=== PATIENT | female | born 1975 | race Hispanic/Latino ===

== ENCOUNTER 2019-04-30 03:03 | Emergency (ER) | payer OTHER ==
[~2019-04-30] VITALS: Ht 154.9 cm; Wt 81.6 kg
[~2019-04-30 03:03] MED LIST: LOSA50TA14 PO
[2019-04-30 03:12] VITALS: BP 183/89
--- NOTE | 2019-04-30 03:12 | NUR ---
ARRIVAL PATIENT PRESENTS WITH COMPLAINTS OF CHEST PAIN, HIGH BLOOD PRESSURE AND HEADACHE "ALL DAY". SHE REPORTS CHEST PAIN TO LEFT SIDE OF CHEST THAT RADIATES TO BACK AND NECK; SHARP. STATES THAT SHE HAS NEVER HAD THIS CHEST PAIN BEFORE. NO CARDIAC HX. HX HTN BUT HAS NOT TAKEN HER BP MEDICATION FOR THE PAST THREE WEEKS. PLACED ON MONITOR. BP 183/89. NO SIGNS OF DISTRESS NOTED. DO ABEBA NOTIFIED.
[2019-04-30] MEDS ORDERED: LOPRESSER IVP STA (03:28)
[2019-04-30] MEDS ORDERED: ASPIRIN PO PRN (03:30)
--- NOTE | 2019-04-30 03:30 | PCM.EKG ---
[facility] Test Date: 2019-04-30 Test Time: 03:19:40 Pat Name: ELI WEEMS Department: Patient ID: [facility]-[id number] Room: Gender: F Director Systems: FRANKIE : 1975 Requested By: AYO US Order Number: [id number] Reading MD: Malathi Us Measurements Intervals Petal Rate: 61 P: 25 IA: 125 QRS: 30 QRSD: 100 T: 52 QT: 428 QTc: 431 Interpretive Statements Sinus rhythm Abnormal R-wave progression, late transition No previous ECG available for comparison Electronically Signed On 05-02-2019 7:00:45 JUNIOR ACCOUNTING CLERK by Malathi Us Please click the below link to view image of tracing.
--- NOTE | 2019-04-30 03:36 | ER.PDOC ---
General Chief Complaint: Requesting Medical Care Stated Complaint: BACK AND CHEST PAIN Time seen by MD: 03:24 Source: patient Exam Limitations: no limitations History of Present Illness Initial Comments Pt c/o headache and chest/back pain (sharp/stabbing, worse with inspiration) onset about 8 hour ago. She is supposed to take BP medication, but ran out 3 weeks ago. Timing/Duration: 4-6 hours Severity/Quality: moderate Radiation: neck Activities at Onset: none Prior CP/Workup: No Prior Chest Pain Modifying Factors: breathing (deep inspiration makes pain worse) Nitro Today/Relief: No Nitro Taken Today Aspirin Today: No Aspirin Today Associated Symptoms: headache Allergies: Coded Allergies: No Known Allergies (Unverified , 02/26/15) Home Meds Reported Medications Losartan Potassium (LOSARTAN POTASSIUM) 50 Mg Tablet, 1 TAB PO DAILY, #30 TAB 5 Refills 11/15/15 Past Medical History Medical History: hypertension (medically noncompliant, ran out of meds > 3 weeks ago) Surgical History: cholecystectomy Family History Significant Family History: no pertinent family hx Social History Smoking: non-smoker Constitutional: no symptoms reported EENTM: no symptoms reported Respiratory: no symptoms reported Cardiovascular: chest pain (sharp, stabbing, worse with deep inspiration) Musculoskeletal: no symptoms reported Skin: no symptoms reported Physical Exam General Appearance: No Apparent Distress, WD/WN, Obese HEENT: PERRL/EOMI Respiratory: lungs clear, normal breath sounds, no respiratory distress, no accessory muscle use Cardiovascular: Regular Rate, Rhythm Gastrointestinal: Normal Bowel Sounds Extremities: Normal Range of Motion, Non-Tender, No Pedal Edema, No Calf Tenderness Neurologic/Psychiatric: Alert, Normal Mood/Affect, Oriented x 3 Skin: Normal Color, Warm/Dry Lymphatic: No Adenopathy Progress Progress cardiac markers are normal; BP minimally responsive to metoprolol; labetalol ordered with resultant drop in pressure 143/92 EKG/XRAY/CT/US EKG: NSR, no ST T wave changes Departure Time of Disposition: 04:44 Disposition: 01 HOME, SELF-CARE Impression: Primary Impression: Chest pain Additional Impressions: Medical non-compliance Uncontrolled hypertension Headache Condition: Improved Patient Instructions: Chest Pain (Nonspecific), Hypertension Referrals: YARIEL JUAN NP (PCP) PRIMARY CARE PROVIDER Additional Instructions: Take the prescribed blood pressure medication as directed. Follow up with your doctor next week for re-evaluation. Home to rest in a dark quiet place. Return to ER if headache worsens, visual change, difficulty breathing, worsening chest discomfort, or for any other concerns. Duration or Time Spent with Pa: 15 min Problem Qualifiers Primary Impression: Chest pain Chest pain type: chest pain on breathing Qualified Codes: R07.1 - Chest pain on breathing Additional Impressions: Headache Headache type: other vascular headache Qualified Codes: G44.1 - Vascular headache, not elsewhere classified AYO US DO Apr 30, 2019 03:36
[2019-04-30 03:41] LABS: BASOPHIL % 0.6 % (0.0-0.2); EOSINOPHIL # 0.3 10^3/uL (0.0-0.2); EOSINOPHIL % 3.7 % (0.0-5.0); LYMPHOCYTES % 40.8 % (24.0-44.0); MEAN CORP HGB 30.3 pg (26-34); MONOCYTES # 0.5 10^3/uL (0.3-0.8); MONOCYTES % 6.5 % (5.0-12.0); NEUTROPHIL # 3.4 10^3/uL (1.8-7.7); NEUTROPHILS % 48.1 % (41.0-85.0); PLATELET COUNT 268 10^3/uL (150-400); RED CELL DISTRIBUTION WIDTH 11.9 % (11.5-14.5)
[2019-04-30] MEDS ORDERED: LOPRESSER ONE (03:42)
[2019-04-30] MEDS ORDERED: ASPIRIN ONE (03:42)
[2019-04-30 04:00] VITALS: BP 161/101
[2019-04-30 04:06] LABS: ALANINE AMINOTRANSFERASE(ML) 55 U/L (12-78); ALKALINE PHOSPHATASE 74 U/L (50-136); ASPARTATE AMINO TRANSFERASE 28 U/L (0-35); CALCIUM 8.2 mg/dL (8.4-10.5); GLUCOSE 103 mg/dL (70-110)
[2019-04-30] MEDS ORDERED: TORADOL ONE (04:29)
[2019-04-30 04:30] VITALS: BP 143/92
[2019-04-30] MEDS ORDERED: TORADOL IM ONE (04:30)
[2019-04-30] MEDS ORDERED: TRANDATE IV ONE (04:30)
[2019-04-30] MEDS ORDERED: TORADOL IV ONE (04:30)
[2019-04-30 05:00] VITALS: BP 139/93
--- NOTE | 2019-04-30 05:00 | NUR ---
IV IV DISCONTINUED WITH TIP INTACT. PRESSURE DRESSING APPLIED.
== END 2019-04-30 05:12 | disposition home or self-care (01) ==
LOC: ER 03:03
DX: I10 Essential (primary) hypertension (principal); R51 Headache; Z79.899 Other long term (current) drug therapy; Z90.49 Acquired absence of other specified parts of digestive tract
CPT/HCPCS: 36415; 80053; 82550; 82553; 83880; 84484; 85025; 86677; 93005; 96374; 96375; 99285; J1885; J3490

== ENCOUNTER → 2020-03-29 | Outpatient (CLI) | payer OTHER ==
--- NOTE | 2020-03-29 11:11 | DIREP ---
PROCEDURE:XR SPINE CERVICAL 2 OR 3 VIEWS COMPARISON:None. INDICATIONS:NECK PAIN TECHNIQUE:AP, lateral, swimmer's, and dens views of the cervical spine are provided. FINDINGS: ALIGNMENT:Normal. VERTEBRAE:Normal. DISK SPACES:Normal. CERVICAL RIBS:None. OTHER:Normal. CONCLUSION:Normal C-spine. No focal spondylosis detected. Dictated by: Stefanie Camilo MD on 03/29/2020 at 11:08 AM
--- NOTE | 2020-03-29 11:14 | DIREP ---
PROCEDURE:XRAY SPINE LUMBAR 2-3 VWS COMPARISON:None. INDICATIONS:LOW BACK PAIN TECHNIQUE:AP, lateral, and coned down lateral views of the lumbar spine are provided. FINDINGS: ALIGNMENT:Subtle spondylolisthesis of L5 on S1 VERTEBRAE:Subtle traction spurs L2-3 L3-4 DISK SPACES:Normal. SPONDYLOLISTHESIS:L5 on S1 SACROILIAC JOINTS:Normal. OTHER:Normal. CONCLUSION:Subtle spondylolisthesis L5. Dictated by: Stefanie Camilo MD on 03/29/2020 at 11:11 AM
== END | disposition home or self-care (01) ==
LOC: RAD 09:59
PROVIDERS: ATTEND Chiropractor
DX: M43.17 Spondylolisthesis, lumbosacral region (principal); M54.2 Cervicalgia; M54.5 Low back pain
CPT/HCPCS: 72040; 72100

== ENCOUNTER 2020-05-27 19:39 | Emergency (ER) | payer OTHER ==
[~2020-05-27] VITALS: Ht 154.9 cm; Wt 83.9 kg
[2020-05-27 20:04] VITALS: BP 124/84
--- NOTE | 2020-05-27 20:28 | NUR ---
RESULTS POSITIVE COVID, POSITIVE STREP, CALLED TO NURSE BY ARACELIS.
--- NOTE | 2020-05-27 20:32 | DIREP ---
PROCEDURE:CHEST 1 VIEW COMPARISON:None. INDICATIONS:Cough FINDINGS: LUNGS/PLEURA:No significant pulmonary parenchymal abnormalities. No effusions. VASCULATURE:Normal. Unremarkable pulmonary vasculature. CARDIAC:Normal. No cardiac silhouette abnormality or cardiomegaly. MEDIASTINUM:Normal. No visible mass or adenopathy. BONES:Normal. No fracture or visible bony lesion. OTHER:Negative. CONCLUSION:Normal examination. Dictated by: Matthew Bonilla M.D. on 05/27/2020 at 08:30 PM
--- NOTE | 2020-05-27 21:00 | ER.PDOC ---
General Chief Complaint: Cough/Congestion Stated Complaint: COUGH/SORE THROAT/FEVER/N/V/D Time seen by MD: 20:10 Source: patient Exam Limitations: no limitations History of Present Illness Initial Comments Cough, fever, congestion, body aches, sore throat and nausea for 3 days. Timing/Duration: gradual Severity: moderate Associated Symptoms: fever/chills, runny nose, sore throat, cough Allergies: Coded Allergies: No Known Allergies (Unverified , 02/26/15) Home Meds Reported Medications Losartan Potassium (LOSARTAN POTASSIUM) 50 Mg Tablet, 1 TAB PO DAILY, #30 TAB 5 Refills 11/15/15 Constitutional: see HPI EENTM: see HPI Respiratory: see HPI Cardiovascular: no symptoms reported Gastrointestinal: no symptoms reported Genitourinary: no symptoms reported All Other Systems: Reviewed and Negative Past Medical History Medical History: hypertension Surgical History: cholecystectomy Social History Alcohol Use: none Drug Use: none Physical Exam General Appearance: alert, no distress Eye: eyes nml inspection Nose: rhinorrhea Throat: airway nml, pharyngeal erythema Neck: nml inspection, supple Respiratory: no resp.distress, breath sounds nml Abdomen: non-tender, no organomegaly CVS: reg rate & rhythm, heart sounds nml Skin: color nml, no rash, warm/dry Extremities: non-tender, nml ROM, no pedal edema NEURO/PSYCH: oriented x 3, CN's nml as tested, motor nml, sensation nml, mood/affect nml Results/Orders Results/Orders Orders - JAYRO PEREZ MD Strep Screen (05/27/20 20:04) Xr Chest 1v (05/27/20 20:04) Influenza A&B (05/27/20 20:04) Covid19 Antigen Shakila Lisa (05/27/20 20:04) Vital Signs Date Time Temp Pulse Resp B/P (MAP) Pulse Ox O2 Delivery O2 Flow Rate FiO2 05/27/20 20:04 99.2 104 22 124/84 (97) 98 Room Air 05/27/20 20:04 99.2 104 22 98 05/27/20 20:04 99.2 104 22 Laboratory Tests Test 05/27/20 19:57 Influenza Type A Antigen NEGATIVE (NEG) Influenza B Immunofluorescence NEGATIVE (NEG) SARS-CoV-2 Antigen (Rapid) POSITIVE (NEGATIVE) *A Group A Streptococcus Screen POSITIVE (NEGATIVE) EKG/XRAY/CT/US XRAY: chest (No active disease) ER DEPART Departure Time of Disposition: 20:58 Disposition: 01 HOME, SELF-CARE Impression: Primary Impression: COVID-19 virus infection Additional Impression: Strep sore throat Condition: Stable Referrals: YARIEL JUAN MANAGER PSYCHIATRY (PCP) PRIMARY CARE PROVIDER Additional Instructions: Z-Garrett Vitamin C, D and zinc [id number] as directed Alternate Tylenol with Motrin every 4 hours as needed for fever 100.4 and above Self quarantine at home for 14 days Follow-up with your PCP in 1 week Return to ED if worsening symptoms or concerns Duration or Time Spent with Pa: 20 min Problem Qualifiers JAYRO PEREZ MD May 27, 2020 21:00
== END 2020-05-27 21:19 | disposition home or self-care (01) ==
LOC: ER 19:39
DX: U07.1 COVID-19 (principal); I10 Essential (primary) hypertension; Z79.899 Other long term (current) drug therapy; Z90.49 Acquired absence of other specified parts of digestive tract
CPT/HCPCS: 71045; 87426; 87804; 87880; 99284

== ENCOUNTER → 2020-06-10 | Outpatient (CLI) | payer OTHER | END | disposition home or self-care (01) | LOC: NPLAB 11:44 | PROVIDERS: ATTEND Nurse Practitioner Family | DX: U07.1 COVID-19 (principal); Z01.812 Encounter for preprocedural laboratory examination | CPT/HCPCS: 87635 ==

== ENCOUNTER → 2020-06-17 | Outpatient (CLI) | payer OTHER | END | disposition home or self-care (01) | LOC: NPLAB 11:20 | PROVIDERS: ATTEND Nurse Practitioner Family | DX: Z03.818 Encounter for observation for suspected exposure to other biological agents ruled out (principal); Z20.822 Contact with and (suspected) exposure to COVID-19 | CPT/HCPCS: 87633 ==

== ENCOUNTER 2020-11-04 20:53 | Emergency (ER) | payer OTHER ==
[~2020-11-04] VITALS: Ht 154.9 cm; Wt 81.6 kg
[2020-11-04 21:06] VITALS: BP 160/66
--- NOTE | 2020-11-04 21:21 | PCM.EKG ---
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
[2020-11-04] MEDS ORDERED: ASPIRIN ONE (21:23)
[2020-11-04] MEDS ORDERED: ASPIRIN PO PRN (21:30)
[2020-11-04] MEDS ORDERED: TORADOL IV STA (21:48)
[2020-11-04 21:53] LABS: BASOPHIL # 0.1 10^3/uL (0.0-0.1); EOSINOPHIL # 0.3 10^3/uL (0.0-0.2); EOSINOPHIL % 3.8 % (0.0-5.0); LYMPHOCYTES # 2.78 10^3/uL1 (1.0-4.8); MEAN CORP HGB 29.9 pg (26-34); MONOCYTES # 0.5 10^3/uL (0.3-0.8); MONOCYTES % 6.5 % (5.0-12.0); NEUTROPHIL # 4.5 10^3/uL (1.8-7.7); NEUTROPHILS % 54.7 % (41.0-85.0); PLATELET COUNT 249 10^3/uL (150-400); RED CELL DISTRIBUTION WIDTH 12.4 % (11.5-14.5)
[2020-11-04] MEDS ORDERED: TORADOL ONE (21:57)
--- NOTE | 2020-11-04 22:01 | DIREP ---
PROCEDURE:CHEST 2 VIEWS COMPARISON:[facility], CR, XRAY CHEST SINGLE VW, 05/27/2020, 07:59 PM. INDICATIONS:chest pain FINDINGS: LUNGS/PLEURA:No significant pulmonary parenchymal abnormalities. No effusions. VASCULATURE:Normal. Unremarkable pulmonary vasculature. CARDIAC:Normal. No cardiac silhouette abnormality or cardiomegaly. MEDIASTINUM:Normal. No visible mass or adenopathy. BONES:Mild degenerative disc disease and spondylosis without visible acute abnormalities. OTHER:Negative. CONCLUSION:No acute disease. Dictated by: Isauro Calvert MD on 11/04/2020 at 09:57 PM
[2020-11-04 22:14] LABS: ALANINE AMINOTRANSFERASE(ML) 46 U/L (12-78); ALKALINE PHOSPHATASE 72 U/L (50-136); ASPARTATE AMINO TRANSFERASE 28 U/L (0-35); CALCIUM 8.9 mg/dL (8.4-10.5); CARBON DIOXIDE 25.8 mmol/L (20.0-32); GLUCOSE 102 mg/dL (70-110)
--- NOTE | 2020-11-04 23:14 | ER.PDOC ---
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 She denies difficulty breathing, nausea, vomiting, or diaphoresis. She denies nasal congestion, sore throat,coug, or fever. She denies pain or swelling of the legs. She denies unusual activity or trauma. She has a history of HTN. NO DM, no hypercholesterolemia, no previous PR, no stents. She states she has seen her PCP for this chest pain multiple times Timing/Duration: 1 hour Severity/Quality: moderate, sharp, stabbing Radiation: arms (left) Activities at Onset: rest Modifying Factors: movement, palpation Nitro Today/Relief: No Nitro Taken Today Aspirin Today: No Aspirin Today Associated Symptoms: denies symptoms Prior symptoms/Treatment: Similar symptoms previous, Recenly Seen Allergies: Coded Allergies: No Known Allergies (Unverified , 02/26/15) Home Meds Reported Medications Losartan Potassium (LOSARTAN POTASSIUM) 50 Mg Tablet, 1 TAB PO DAILY, #30 TAB 5 Refills 11/15/15 Past Medical History Medical History: hypertension Surgical History: cholecystectomy Family History Significant Family History: hypertension Social History Smoking: less than 1 pack/day Alcohol Use: none Drug Use: none Constitutional: denies fever EENTM: denies throat pain Respiratory: denies cough, denies shortness of breath Cardiovascular: chest pain; denies lightheadedness, denies syncope Gastrointestinal: denies abdominal pain, denies diarrhea, denies nausea Genitourinary: denies dysuria, denies frequency, denies hematuria Musculoskeletal: denies back pain Skin: denies change in color Hematologic/Lymphatic: denies easy bruising All Other Systems: Reviewed and Negative Physical Exam General Appearance: No Apparent Distress, WD/WN HEENT: PERRL/EOMI, Normal ENT Inspection, Pharynx Normal Neck: Non-Tender, Full Range of Motion, Supple, Normal Inspection Respiratory: chest non-tender, lungs clear, normal breath sounds, no respiratory distress, no accessory muscle use Cardiovascular: Normal Peripheral Pulses, Regular Rate, Rhythm, No Edema, No Murmur Gastrointestinal: Normal Bowel Sounds, No Organomegaly, No Pulsatile Mass, Non Tender, Soft Extremities: Normal Range of Motion, Non-Tender, Normal Inspection, No Pedal Edema, No Calf Tenderness, Normal Capillary Refill Neurologic/Psychiatric: electric meter tester II-XII NML as Tested, No Motor/Sensory Deficits, Alert, Normal Mood/Affect, Oriented x 3 Skin: Normal Color, Warm/Dry Results/Orders Results/Orders Orders - CHINEDU RODRIGUEZ MD Cbc With Auto Diff (11/04/20 21:18) Comprehensive Metabolic Panel (11/04/20 21:18) Troponin I (11/04/20 21:18) Ekg-Routine (11/04/20 21:18) Aspirin (Aspirin) (11/04/20 21:30) Xr Chest 2v (11/04/20 21:18) Saline Lock (11/04/20 21:18) Aspirin (Aspirin) (11/04/20 21:23) Ketorolac Tromethamine (Toradol) (11/04/20 21:48) Ketorolac Tromethamine (Toradol) (11/04/20 21:57) Vital Signs Date Time Temp Pulse Resp B/P (MAP) Pulse Ox O2 Delivery O2 Flow Rate FiO2 11/04/20 21:06 98.2 74 18 74 11/04/20 21:06 98.2 74 18 160/66 (97) 99 Room Air 11/04/20 21:06 98.2 74 18 Administered Medications Medications (Trade) Dose Ordered Sig/Skyla Route PRN Reason Start Time Stop Time Status Last Admin Dose Admin Aspirin (Aspirin) 325 mg DAILY PRN PO CHEST PAIN 11/04/20 21:30 12/04/20 21:29 11/04/20 21:24 325 MG Ketorolac Tromethamine (Toradol) 30 mg OT STAT IV 11/04/20 21:48 11/04/20 21:49 DC 11/04/20 21:58 30 MG Laboratory Tests Test 11/04/20 21:45 White Blood Count 8.2 10^3/uL (4.5-11.0) Red Blood Count 4.75 10^6/uL (4.00-5.20) Hemoglobin 14.2 g/dL (12.0-15.0) Hematocrit 41.5 % (36.0-46.0) Mean Corpuscular Volume 87.4 fL (78-100) Mean Corpuscular Hemoglobin 29.9 pg (26-34) Mean Corpuscular Hemoglobin Concent 34.2 g/dL (33-36.5) Red Cell Distribution Width 12.4 % (11.5-14.5) Platelet Count 249 10^3/uL (150-400) Mean Platelet Volume 9.6 fL (7.8-11.0) Neutrophils (%) (Auto) 54.7 % (41.0-85.0) Lymphocytes (%) (Auto) 34.0 % (24.0-44.0) Monocytes (%) (Auto) 6.5 % (5.0-12.0) Neutrophils # (Auto) 4.5 10^3/uL (1.8-7.7) Lymphocytes # (Auto) 2.78 10^3/uL1 (1.0-4.8) Monocytes # (Auto) 0.5 10^3/uL (0.3-0.8) Absolute Immature Granulocyte (auto 0.02 10^3 u/L (0-2) Absolute Eosinophils (auto) 0.3 10^3/uL (0.0-0.2) H Immature Granulocytes % 0.20 % (0.00-0.50) Eosinophils % 3.8 % (0.0-5.0) Basophils % 1.0 % (0.0-0.2) H Basophils # 0.1 10^3/uL (0.0-0.1) Sodium Level 143 mmol/L (132-145) Potassium Level 3.4 mmol/L (3.6-5.2) L Chloride Level 106.0 mmol/L (96-109) Carbon Dioxide Level 25.8 mmol/L (20.0-32) Anion Gap 14.6 Blood Urea Nitrogen 11 mg/dL (7-18) Creatinine 0.65 mg/dL (0.59-1.40) Estimated GFR () 119.3 (>/=60) Est GFR (CKD-EPI)(Non-Afr [place]) 98.6 (>/=60) BUN/Creatinine Ratio 16.0 Glucose Level 102 mg/dL (70-110) Calcium Level 8.9 mg/dL (8.4-10.5) Total Bilirubin 0.5 mg/dL (0.2-1.0) Aspartate Amino Transferase (AST) 28 U/L (0-35) Alanine Aminotransferase (ALT) 46 U/L (12-78) Alkaline Phosphatase 72 U/L (50-136) Troponin I < 0.02 ng/mL (0.00-0.05) Total Protein 7.4 g/dL (6.4-8.2) Albumin 4.0 g/dL (3.4-5.0) Globulin 3.4 Albumin/Globulin Ratio 1.176 Progress Progress CBC, CMP, Troponin all nl. CXR nl. She was given ketorolac with decreased pain. ECG nl, troponin normal. HEART score 2 - low risk for ACS. Plan to d/c home with f/u with PCP EKG/XRAY/CT/US EKG: NSR, rhythm, no ST T wave changes ER DEPART Departure Time of Disposition: 23:12 Disposition: 01 HOME / SELF CARE / HOMELESS Impression: Primary Impression: Chest pain Condition: Improved Referrals: YARIEL JUAN ENERGY CONTROL OFFICER (PCP) PRIMARY CARE PROVIDER Additional Instructions: Return immediately if unusual chest pain, difficulty breathing, vomiting, fever, severe cough. Continue current medications as prescribed. Follow up PCP 2-3 days. Duration or Time Spent with Pa: 40 min Return to Work/School Can a patient return to work?: Yes Problem Qualifiers Primary Impression: Chest pain Chest pain type: unspecified Qualified Codes: R07.9 - Chest pain, unspecified CHINEDU RODRIGUEZ MD Nov 04, 2020 23:14
[2020-11-04 23:25] VITALS: BP 146/72
== END 2020-11-04 23:24 | disposition home or self-care (01) ==
LOC: ER 20:53
DX: R07.9 Chest pain, unspecified (principal); F17.210 Nicotine dependence, cigarettes, uncomplicated; I10 Essential (primary) hypertension; Z79.1 Long term (current) use of non-steroidal anti-inflammatories (NSAID); Z79.82 Long term (current) use of aspirin; Z79.899 Other long term (current) drug therapy; Z82.49 Family history of ischemic heart disease and other diseases of the circulatory system; Z90.49 Acquired absence of other specified parts of digestive tract
CPT/HCPCS: 36415; 71046; 80053; 84484; 85025; 93005; 96374; 99285; J1885

== ENCOUNTER → 2020-11-23 | Outpatient (CLI) | payer OTHER | END | disposition home or self-care (01) | LOC: RT 14:00 | PROVIDERS: ATTEND Nurse Practitioner Family | DX: R06.02 Shortness of breath (principal) | CPT/HCPCS: 94010 ==

== ENCOUNTER → 2021-04-12 | Outpatient (CLI) | payer OTHER | END | disposition home or self-care (01) | LOC: NPLAB 13:52 | PROVIDERS: ATTEND Nurse Practitioner Family | DX: U07.1 COVID-19 (principal) | CPT/HCPCS: 87426 ==

== ENCOUNTER → 2021-06-15 | Outpatient (CLI) | payer OTHER | END | disposition home or self-care (01) | LOC: NPLAB 12:23 | PROVIDERS: ATTEND Nurse Practitioner Family | DX: R30.0 Dysuria (principal) | CPT/HCPCS: 87077; 87086; 87186 ==

== ENCOUNTER → 2021-08-23 | Outpatient (CLI) | payer OTHER ==
--- NOTE | 2021-08-23 17:48 | DIREP ---
PROCEDURE:XRAY KNEE 2 VWS-RT COMPARISON:None. INDICATIONS:M25.561 PAIN IN RIGHT KNEE FINDINGS: BONES:No acute fracture. JOINTS:Joint spaces appear relatively preserved with minimal marginal spurring. SOFT TISSUES:No suprapatellar joint effusion. OTHER:No additional findings. CONCLUSION: 1. No acute osseous abnormality or significant degenerative joint disease. 2. No suprapatellar joint effusion Dictated by: Kp Villareal M.D. On 08/23/2021 at 05:46 PM
--- NOTE | 2021-08-23 18:07 | DIREP ---
PROCEDURE:XRAY WRIST MIN 3VW-RT COMPARISON:None. INDICATIONS:M25.531 PAIN IN RIGHT WRIST FINDINGS: BONES:No acute fracture. JOINTS:Joint spaces are preserved. SOFT TISSUES:No suspicious abnormality. OTHER:No additional findings. CONCLUSION:No acute osseous abnormality or significant degenerative changes of the wrist. Dictated by: Kp Villareal M.D. on 08/23/2021 at 06:05 PM
--- NOTE | 2021-08-23 18:08 | DIREP ---
PROCEDURE:XRAY WRIST MIN 3VW-LT COMPARISON:None. INDICATIONS:M25.532 PAIN IN LEFT WRIST FINDINGS: BONES:No acute fracture. JOINTS:Joint spaces are preserved. SOFT TISSUES:No suspicious abnormality. OTHER:No additional findings. CONCLUSION:No acute osseous abnormality or significant degenerative changes of the wrist. Dictated by: Kp Villareal M.D. on 08/23/2021 at 06:06 PM
== END | disposition home or self-care (01) ==
LOC: RAD 16:46
PROVIDERS: ATTEND Nurse Practitioner Family
DX: M25.532 Pain in left wrist (principal); M25.531 Pain in right wrist; M25.561 Pain in right knee
CPT/HCPCS: 73560; 73110-LT; 73110-RT

== ENCOUNTER → 2021-09-22 | Outpatient (CLI) | payer OTHER ==
--- NOTE | 2021-09-22 21:17 | DIREP ---
PROCEDURE:XRAY SPINE THORACIC 3 VWS COMPARISON:None. INDICATIONS:M54.9 DORSALGIA, Y99.0 CIVILIAN ACTIVITY PAY, R52 PAIN TECHNIQUE:AP & lateral views of the thoracic spine and a swimmer's view of the cervicothoracic junction are provided. FINDINGS: ALIGNMENT:Normal. VERTEBRAE:Normal. DISK SPACES:Mid to lower thoracic ventral spondylosis. No significant disc space narrowing. OTHER:Cholecystectomy clips are present in the right upper quadrant. CONCLUSION: 1. Cholecystectomy. 2. Mid to lower thoracic ventral spondylosis without significant disc space narrowing. No acute deformities. Dictated by: Isauro Calvert MD on 09/22/2021 at 09:15 PM
--- NOTE | 2021-09-22 21:45 | DIREP ---
PROCEDURE:XRAY SPINE LUMBAR 2-3 VWS COMPARISON:[facility], , XRAY SPINE LUMBAR 2-3 VWS, 03/29/2020, 10:13 AM. INDICATIONS:M54.9 DORSALGIA, W17.89XA FALL, Y99.0 [place] ACTIVITY FOR PAY, M54.50 LBP TECHNIQUE:AP, lateral, and coned down lateral views of the lumbar spine are provided. FINDINGS: ALIGNMENT:Normal. VERTEBRAE:Normal. DISK SPACES:L2-3, L3-4, and L4-5 ventral spondylosis without significant SPONDYLOLISTHESIS:None. SACROILIAC JOINTS:Normal. OTHER:Cholecystectomy clips are present in the right upper quadrant. CONCLUSION: 1. L2-3 through L4-5 ventral spondylosis without disc space narrowing. 2. No acute deformities. Dictated by: Isauro Calvert MD on 09/22/2021 at 09:42 PM
--- NOTE | 2021-09-23 15:58 | DIREP ---
PROCEDURE:XRAY SACRUM COCCYX MIN 2VWS COMPARISON:None. INDICATIONS:M54.9 DORSALGIA, Y99.0 CIVILIAN ACTIVITY FOR PAY, R52 PAIN FINDINGS: BONES:Normal. JOINTS:Normal. SOFT TISSUES:Normal. OTHER:No additional findings. CONCLUSION:Normal examination. Dictated by: Noah Olivarez DO on 09/23/2021 at 03:54 PM
== END | disposition home or self-care (01) ==
LOC: RAD 15:09
PROVIDERS: ATTEND Nurse Practitioner Adult Health
DX: M47.816 Spondylosis without myelopathy or radiculopathy, lumbar region (principal); M47.814 Spondylosis without myelopathy or radiculopathy, thoracic region; Y99.0 Civilian activity done for income or pay; Z68.31 Body mass index [BMI] 31.0-31.9, adult; M54.9 Dorsalgia, unspecified
CPT/HCPCS: 72072; 72100; 72220

== ENCOUNTER 2021-11-26 07:28 | Emergency (ER) | payer OTHER ==
[~2021-11-26] VITALS: Ht 154.9 cm; Wt 84.4 kg
[2021-11-26 07:28] VITALS: BP 134/91
[2021-11-26] MEDS ORDERED: TORADOL IM STA (07:39)
--- NOTE | 2021-11-26 07:44 | ER.PDOC ---
General Chief Complaint: Requesting Medical Care Stated Complaint: COUGH,CONGESTION,FEVER Time seen by MD: 07:30 Source: patient History of Present Illness Initial Comments Patient is a 46-year-old female with a past medical history of hypertension who comes in with 2 days worth of upper respiratory like infection symptoms. Patient states that over the past 2 days she has had a fever of a T-max of 101.2 F patient states that she uses Tylenol which helps with this. Patient states that she has associated symptoms of rhinorrhea that is clear a mild cough that is nonproductive and bilateral ear pain that she states that is throbbing in nature and nonradiating. Patient states that she also has an associated headache which is also throbbing and all-encompassing without radiation. Patient denies any nausea vomiting changes to her stool or urine. Patient is not sure what makes the symptoms worse. But Tylenol does make the symptoms better. Timing/Duration: gradual Severity: mild Associated Symptoms: fever/chills, earache, runny nose, sinus pain/drainage, cough, headache Allergies: Coded Allergies: No Known Allergies (Unverified , 02/26/15) Home Meds Reported Medications Losartan Potassium (LOSARTAN POTASSIUM) 50 Mg Tablet, 1 TAB PO DAILY, #30 TAB 5 Refills 11/15/15 Constitutional: chills, fever, malaise EENTM: denies eye pain, denies blurred vision, denies tearing, denies double vision; ear pain; denies ear discharge, denies nose pain; nose congestion; denies throat pain, denies throat swelling, denies mouth pain, denies mouth swelling Respiratory: cough; denies orthopnea, denies shortness of breath, denies SOB with exertion, denies SOB at rest Cardiovascular: denies chest pain, denies irregular heart rate, denies lightheadedness Gastrointestinal: denies abdominal pain, denies constipated, denies diarrhea, denies nausea, denies vomiting Genitourinary: denies dysuria Musculoskeletal: denies back pain Skin: denies rash Psychiatric/Neurological: denies emotional problems; headache; denies numbness Endocrine: denies unexplained weight gain, denies unexplaned weight loss Hematologic/Lymphatic: denies swollen glands Past Medical History Medical History: hypertension Surgical History: cholecystectomy Family History Significant Family History: no pertinent family hx Social History Smoking: non-smoker Alcohol Use: none Drug Use: none Reviewed Nursing Reviewed: Vital Signs, Abn. Noted, Nursing Assessment Physical Exam General Appearance: alert, no distress Eye: eyes nml inspection, lids & conjunct. nml, PERRL, no nystagmus Ear: (R) dullness, (L) dullness, (R) loss of landmarks Nose: rhinorrhea, mucosal edema Throat: pharynx nml, airway nml Neck: nml inspection, supple Respiratory: no resp.distress, breath sounds nml Abdomen: non-tender, no organomegaly CVS: reg rate & rhythm, heart sounds nml Skin: color nml, no rash, warm/dry Extremities: non-tender, nml ROM, no pedal edema NEURO/PSYCH: oriented x 3, CN's nml as tested, motor nml, sensation nml, mood/affect nml Results/Orders Results/Orders Orders - DAMARIS PETIT MD Covid19 Antigen Shakila Lisa (11/26/21 07:33) Xr Chest 1v (11/26/21 07:33) Influenza A&B (11/26/21 07:39) Ketorolac Tromethamine (Toradol) (11/26/21 07:39) Vital Signs Date Time Temp Pulse Resp B/P (MAP) Pulse Ox O2 Delivery O2 Flow Rate FiO2 11/26/21 07:28 98.6 88 18 98 11/26/21 07:28 98.6 88 18 11/26/21 07:28 98.6 88 18 134/91 (105) 98 Room Air* 0 21 Administered Medications Medications (Trade) Dose Ordered Sig/Skyla Route PRN Reason Start Time Stop Time Status Last Admin Dose Admin Ketorolac Tromethamine (Toradol) 15 mg OT STAT IM 11/26/21 07:39 11/26/21 07:40 UNV 11/26/21 07:51 15 MG Laboratory Tests Test 11/26/21 07:47 Influenza Type A Antigen NEGATIVE (NEG) Influenza Type B Antigen NEGATIVE (NEG) SARS-CoV-2 Antigen (Rapid) NEGATIVE (NEGATIVE) Progress Progress Patient is here with upper respiratory infection-like symptoms over the past 2 days. Will swab for COVID flu do a chest x-ray to make sure she does not developing pneumonia and give her some ketorolac for symptoms.Patient otherwise well-appearing. 08 22reassessmentpatient states that her headache is improved but is still there we will give her more medicine before she leaves. Because of the brewing infection in her right ear we will send her home with a prescription for Augmentin. Patient was COVID and flu negative. Chest x-ray reassuring. Sandy ent vital signs also reassuring. ER DEPART Departure Time of Disposition: 08:22 Disposition: 01 HOME / SELF CARE / HOMELESS Impression: Primary Impression: Otitis media Additional Impression: URI (upper respiratory infection) Condition: Improved Patient Instructions: Otitis Media, Adult, Upper Respiratory Infection, Adult Referrals: [facility] [employer]PER[employer] COORDINATOR (PCP) PRIMARY CARE PROVIDER Additional Instructions: Please follow-up with your primary care provider within the next week. Please take all medications as prescribed. If you have any new persistent or worsening symptoms or concerns please seek emergent medical attention. Duration or Time Spent with Pa: 30 Problem Qualifiers Primary Impression: Otitis media Otitis media type: unspecified Chronicity: acute Qualified Codes: H66.90 - Otitis media, unspecified, unspecified ear Additional Impression: URI (upper respiratory infection) URI type: unspecified URI Qualified Codes: J06.9 - Acute upper respiratory infection, unspecified DAMARIS PETIT MD Nov 26, 2021 07:44
[2021-11-26] MEDS ORDERED: TORADOL ONE (07:48)
--- NOTE | 2021-11-26 08:13 | DIREP ---
PROCEDURE:CHEST 1 VIEW COMPARISON:[facility], CR, XRAY CHEST 2 VWS, 11/21/2020, 11:47 AM. INDICATIONS:cough FINDINGS: LUNGS/PLEURA:No significant pulmonary parenchymal abnormalities or pleural effusion. CARDIAC:Normal cardiac silhouette and normal pulmonary vascularity. MEDIASTINUM:Normal. BONES:Normal. OTHER:No additional findings. CONCLUSION:No acute cardiopulmonary process or significant change. Dictated by: Heidi Alford MD on 11/26/2021 at 08:12 AM
[2021-11-26] MEDS ORDERED: TYLENOL PO STA (08:22)
[2021-11-26] MEDS ORDERED: TYLENOL PO ONE (08:27)
[2021-11-26 08:28] VITALS: BP 139/79
== END 2021-11-26 08:28 | disposition home or self-care (01) ==
LOC: ER 07:28
DX: H66.91 Otitis media, unspecified, right ear (principal); Z20.822 Contact with and (suspected) exposure to COVID-19; H92.03 Otalgia, bilateral; I10 Essential (primary) hypertension; J06.9 Acute upper respiratory infection, unspecified; R51.9 Headache, unspecified; Z90.49 Acquired absence of other specified parts of digestive tract
CPT/HCPCS: 96372; 99284; 71045; 87426; 87804 ×2; J1885; A9150

== ENCOUNTER → 2022-01-17 | Outpatient (CLI) | payer OTHER ==
--- NOTE | 2022-01-17 16:15 | DIREP ---
PROCEDURE:MRI - THORACIC SPINE WITHOUT CONTRAST COMPARISON:[facility], CR, XRAY SPINE THORACIC 3 VWS, 09/22/2021, 03:28 PM. INDICATIONS:MUSCLE SPASM OF BACK, FALL, CIVILIAN ACTIVITY FOR INCOME OR PAY TECHNIQUE:A variety of imaging planes and parameters were utilized for visualization of suspected pathology about the thoracic spine. Images were performed without gadolinium contrast. FINDINGS VERTEBRAE:No visualized fracture or suspicious lesion. Normal vertebral body height. ALIGNMENT:Normal alignment. No listhesis. DISCS:Normal intervertebral disc height. No significant bulges in the thoracic spine. C5-6 and C6-7 disc bulges suspected. SPINAL CORD/CONUS:Normal caliber, course, and signal. PARASPINAL AREA:No gross abnormality. CONCLUSION:Thoracic spine MRI within normal limits. 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 Dictated by: Gautam Solis M.D. on 01/17/2022 at 04:08 PM
--- NOTE | 2022-01-17 16:51 | DIREP ---
PROCEDURE:MRI SPINE LUMBAR W/O COMPARISON:None. INDICATIONS:LUMBAGO WITH SCIATICA, MUSCLE SPASM OF BACK, FALL, CIVILIAN ACTIVITY TECHNIQUE:A comprehensive examination was performed utilizing a variety of imaging planes and imaging parameters to optimize visualization of suspected pathology. Images were performed without intravenous gadolinium contrast. FINDINGS: ALIGNMENT:Normal. VERTEBRA:Normal vertebral height. Minimal anterior osteophyte formation. Disc desiccation at the L3-4 through L5-S1 levels. CORD/CAUDA EQUINA:Normal size, contour, and signal intensity. PARASPINAL AREA:Normal with no visible mass. OTHER:None. LUMBAR DISC LEVELS T12-L1:No significant disc/facet abnormality, spinal stenosis, or foraminal stenosis. L1-L2:Mild bilateral facet arthrosis. L2-L3:Mild bilateral facet arthrosis. L3-L4:Mild bilateral facet arthrosis. Small central posterior disc protrusion. L4-L5:Moderate bilateral facet arthrosis with mild ligamentum flavum redundancy. Broad-based posterior disc protrusion. No neural foraminal narrowing. L5-S1:Severe bilateral facet arthrosis. Broad-based posterior disc osteophyte complex. Moderate bilateral neural foraminal narrowing. CONCLUSION:1. Multilevel degenerative and discogenic changes without acute bony abnormality. 2. Moderate bilateral neural foraminal narrowing at L5-S1. Dictated by: Marielena Marsh M.D. on 01/17/2022 at 04:46 PM
== END | disposition home or self-care (01) ==
LOC: RAD 13:33
PROVIDERS: ATTEND Student in an Organized Health Care Education/Training Program
DX: M50.323 Other cervical disc degeneration at C6-C7 level (principal); M51.37 Other intervertebral disc degeneration, lumbosacral region; M48.07 Spinal stenosis, lumbosacral region; M62.830 Muscle spasm of back
CPT/HCPCS: 72146; 72148